=== PATIENT | male | born 1960 | race Caucasian/White ===

== ENCOUNTER 2021-01-17 19:05 | Emergency (ER) | payer MEDICARE ==
--- NOTE | 2021-01-17 19:37 | EDM.PDOC ---
ED HPI GENERAL MEDICAL PROBLEM - General Chief Complaint: Abdominal Pain Stated Complaint: COUGHING & POPPED SOMETHING LEFT SIDE Time Seen by Provider: 01/17/21 19:22 - History of Present Illness INITIAL COMMENTS - FREE TEXT/NARRATIVE: 60-year-old male presents the emergency room with left-sided chest wall pain. This started this afternoon after the patient coughed. The patient's been developing a little bit of URI symptoms and has been coughing a little bit. He coughed a little on the hard side developed some significant left lower rib pain. This is bad enough at times it really limits his ability to breathe and he certainly does not want to cough. He is not aware of any fevers or chills. His cough is nonproductive. The patient does not smoke. He used to have a problems with oxycodone however has been clean. He does not want opioids. Left Upper Abdominal Pain Score (Numeric/FACES): 8 - Related Data Allergies Allergy/AdvReac Type Severity Reaction Status Date / Time No Known Allergies Allergy Verified 01/17/21 19:14 Home Meds: Home Meds lisinopriL [Lisinopril] 40 mg PO DAILY 01/17/21 [History] metFORMIN [Glucophage] 500 mg PO BIDMEALS 01/17/21 [History] Past Medical History Cardiovascular History: Reports: Hypertension Endocrine/Metabolic History: Reports: Diabetes, Type II Social & Family History - Tobacco Use Tobacco Use Status *Q: Never Tobacco User - Recreational Drug Use Recreational Drug Use: No ED ROS GENERAL - Review of Systems Review Of Systems: See Below Constitutional: Reports: No Symptoms HEENT: Reports: Rhinitis. Denies: Ear Pain, Throat Pain Respiratory: Reports: Sputum (He has a cough and it is very uncomfortable to cough). Denies: Shortness of Breath, Wheezing Cardiovascular: Reports: Chest Pain (Chest wall pain) Endocrine: Reports: No Symptoms GI/Abdominal: Reports: No Symptoms : Reports: No Symptoms Musculoskeletal: Reports: No Symptoms Skin: Reports: No Symptoms Neurological: Reports: No Symptoms, Confusion, Dizziness ED EXAM, GENERAL - Physical Exam Exam: See Below Exam Limited By: No Limitations General Appearance: Alert, No Apparent Distress Head: Atraumatic, Normocephalic Neck: Normal Inspection, Supple, Non-Tender, Full Range of Motion. No: Lymphadenopathy (L), Lymphadenopathy (R) Respiratory/Chest: No Respiratory Distress, Lungs Clear, Normal Breath Sounds, Other (Palpable chest wall discomfort in the left lower chest lateral aspect moving anterior.) Back Exam: Normal Inspection. No: CVA Tenderness (L), CVA Tenderness (R), Vertebral Tenderness Extremities: Normal Inspection, No Pedal Edema #1 Interpretation EKG Date: 01/17/21 Rhythm: Other (Sinus tachycardia) Rate (Beats/Min): 111 [place]: Normal P-Wave: Present QRS: Normal ST-T: Other (Minimal nondiagnostic changes most likely related to rate) QT: Normal Comparison: NA - No Prior EKG Course - Vital Signs Last Recorded V/S: Last Vital Signs Temp 36.7 C 01/17/21 19:12 Pulse 96 01/17/21 19:12 Resp 17 01/17/21 19:12 BP 173/99 H 01/17/21 19:12 Pulse Ox 97 01/17/21 19:12 - Orders/Labs/Meds Orders: Active Orders 24 hr Category Date Time Status Sodium Chloride 0.9% [Normal Saline] 1,000 ml Med 01/17/21 19:45 Active IV ASDIRECTED Labs: Laboratory Tests 01/17/21 01/17/21 01/17/21 Range/Units 19:59 19:59 19:59 WBC 9.90 H (4.23-9.07) K/mm3 RBC 5.07 (4.63-6.08) M/mm3 Hgb 15.3 (13.7-17.5) gm/dl Hct 43.7 (40.1-51.0) % MCV 86.2 (79.0-92.2) fl MCH 30.2 (25.7-32.2) pg MCHC 35.0 (32.2-35.5) g/dl RDW Std Deviation 40.0 (35.1-43.9) fL Plt Count 165 (163-337) K/mm3 MPV 10.7 (9.4-12.3) fl Neut % (Auto) 80.0 H (34.0-67.9) % Lymph % (Auto) 11.4 L (21.8-53.1) % [place] % (Auto) 7.8 (5.3-12.2) % Eos % (Auto) 0.2 L (0.8-7.0) Baso % (Auto) 0.2 (0.1-1.2) % Neut # (Auto) 7.92 H (1.78-5.38) K/mm3 Lymph # (Auto) 1.13 L (1.32-3.57) K/mm3 [place] # (Auto) 0.77 (0.30-0.82) K/mm3 Eos # (Auto) 0.02 L (0.04-0.54) K/mm3 Baso # (Auto) 0.02 (0.01-0.08) K/mm3 D-Dimer, Quantitative 0.39 (0.19-0.50) mg/L Sodium 139 (136-145) mEq/L Potassium 4.2 (3.5-5.1) mEq/L Chloride 103 (98-107) mEq/L Carbon Dioxide 24 (21-32) mEq/L Anion Gap 16.2 H (5-15) BUN 11 (7-18) mg/dL Creatinine 0.7 (0.7-1.3) mg/dL Est Cr Clr Drug Dosing 112.98 mL/min Estimated GFR (MDRD) > 60 (>60) mL/min BUN/Creatinine Ratio 15.7 (14-18) Glucose 341 H (80-115) mg/dL Calcium 9.1 (8.5-10.1) mg/dL Total Bilirubin 0.6 (0.2-1.0) mg/dL AST 19 (15-37) U/L ALT 43 (16-63) U/L Alkaline Phosphatase 72 (46-116) U/L Troponin I < 0.017 (0.00-0.056) ng/mL Total Protein 7.4 (6.4-8.2) g/dl Albumin 3.2 L (3.4-5.0) g/dl Globulin 4.2 gm/dL Albumin/Globulin Ratio 0.8 L (1-2) Meds: Medications Discontinued Medications Generic Name Dose Route Start Last Admin Trade Name Freq PRN Reason Stop Dose Admin Sodium Chloride 1,000 mls @ 125 mls/hr 01/17/21 19:45 Normal Saline IV ASDIRECTED TOMASA Ketorolac Tromethamine 15 mg 01/17/21 19:40 Ketorolac 15 Mg/Ml Sdv IVPUSH 01/17/21 19:41 ONETIME ONE Ketorolac Tromethamine 30 mg 01/17/21 19:48 01/17/21 20:00 Ketorolac 30 Mg/Ml Sdv IM 01/17/21 19:49 30 mg ONETIME ONE Administration - Re-Assessments/Exams Free Text/Narrative Re-Assessment/Exam: 01/17/21 19:57 So far the patient's consenting to lab work EKG he definitely wants that shot but does not want an IV or fluids. 01/17/21 20:27 Patient left the department apparently he does not want to wait. His troponin and D-dimer is negative Departure - Departure Time of Disposition: 20:28 Disposition: Eloped 07 Clinical Impression: Acute chest wall pain - Discharge Information Referrals: Damion Patel MD [Primary Care Provider] - Forms: ED Department Discharge Sepsis Event Note (ED) - Evaluation Sepsis Screening Result: No Definite Risk - Focused Exam Vital Signs: Vital Signs Temp Pulse Resp BP Pulse Ox 01/17/21 19:12 36.7 C 96 17 173/99 H 97 - My Orders Last 24 Hours: My Active Orders 01/17/21 19:45 Sodium Chloride 0.9% [Normal Saline] 1,000 ml IV ASDIRECTED - Assessment/Plan Last 24 Hours: My Active Orders 01/17/21 19:45 Sodium Chloride 0.9% [Normal Saline] 1,000 ml IV ASDIRECTED
[2021-01-17] MEDS ORDERED: Ketorolac 15 MG/ML SDV IVPUSH ONE (19:40)
[2021-01-17] MEDS ORDERED: Sodium Chloride 0.9% 1,000 ML IV SCH (19:45)
[2021-01-17] MEDS ORDERED: Ketorolac 30 MG/ML SDV IM ONE (19:48)
--- NOTE | 2021-01-17 20:08 | CR ---
Chest: Portable view of the chest was obtained. Comparison: No prior chest imaging is available. Heart size and mediastinum are within normal limits for portable technique. Lungs are clear with no acute parenchymal change. No acute osseous abnormality is appreciated. Impression: 1. Nothing acute is seen on portable chest x-ray. Diagnostic code #1
== END 2021-01-17 20:28 | disposition left against medical advice (07) ==
LOC: JD.ED 19:05
DX: R07.89 Other chest pain (principal); I10 Essential (primary) hypertension; E11.9 Type 2 diabetes mellitus without complications; R00.0 Tachycardia, unspecified; Z79.84 Long term (current) use of oral hypoglycemic drugs; Z79.899 Other long term (current) drug therapy
CPT/HCPCS: 36415; 71045; 80053; 84484; 85025; 85379; 93005; 96372; 99285; J1885; 93010; 99283

== ENCOUNTER 2024-10-11 00:31 | Emergency (ER) | payer MEDICARE ==
[2024-10-11] MEDS ORDERED: Sodium Chloride 0.9% 10 ML Syringe FLUSH PRN (00:47)
[2024-10-11 01:09] LABS: BASOPHILS PERCENT AUTO 0.5 % (0.0-1.0); EOSINOPHILS ABSOLUTE AUTO 0.2 K/mm3 (0.0-0.4); EOSINOPHILS PERCENT AUTO 2.6 % (0.0-6.0); HEMOGLOBIN 13.4 gm/dl (14.0-18.0); IMMATURE GRAN ABSOLUTE AUTO 0.04 K/mm3 (0.00-0.05); IMMATURE GRAN PERCENT AUTO 0.5 % (0.0-0.4); LYMPHOCYTES ABSOLUTE AUTO 1.1 K/mm3 (1.0-4.8); LYMPHOCYTES PERCENT AUTO 12.9 % (24.0-44.0); MEAN CORPUSCULAR HEMOGLOBIN 29.7 pg (28.0-32.0); MEAN CORPUSCULAR HGB CONC 34.4 g/dl (32.0-36.0); MEAN CORPUSCULAR VOLUME 86.5 fl (83.0-99.0); MEAN PLATELET VOLUME 10.7 fl (9.4-12.4); MONOCYTES ABSOLUTE AUTO 0.8 K/mm3 (0.0-0.8); MONOCYTES PERCENT AUTO 9.4 % (0.0-8.0); NEUTROPHILS ABSOLUTE AUTO 6.2 K/mm3 (1.8-7.7); NEUTROPHILS PERCENT AUTO 74.1 % (41.0-71.0); PLATELET COUNT,PLT 194 K/mm3 (150-400); RED BLOOD CELL COUNT 4.51 M/mm3 (4.52-5.90); WHITE BLOOD CELL COUNT,WBC 8.39 K/mm3 (3.9-11.3)
[2024-10-11] MEDS: Bumetanide 1 MG/4 ML MDV IVPUSH ONE ×2 (01:24→03:10)
[2024-10-11 01:40] LABS: A/G RATIO 0.6 (1-2); ALBUMIN 2.6 g/dl (3.4-5.0); ANION GAP 10.6 (5-15); BUN/CREATININE RATIO 15.5 (14-18); CALCIUM 8.7 mg/dL (8.5-10.1); CREATININE 1.1 mg/dL (0.7-1.3); EST CRCL DRUG DOSING (CG) 69.13 mL/min; MAGNESIUM 1.8 mg/dL (1.8-2.4); POTASSIUM,K 3.6 mEq/L (3.5-5.1); PROTEIN TOTAL,TP 7.2 g/dl (6.4-8.2)
[2024-10-11 02:32] LABS: APPEARANCE,URINE CLEAR (Clear); BILIRUBIN,URINE NEGATIVE (Negative); COLOR,URINE YELLOW (Yellow); GLUCOSE,URINE TRACE (Negative); KETONES,URINE NEGATIVE (Negative); LEUKOCYTE ESTERASE,URINE NEGATIVE (Negative); NITRITE,URINE NEGATIVE (Negative); OCCULT BLOOD,URINE 1+ (Negative); PROTEIN,URINE 3+ (Negative); UROBILINOGEN,URINE 0.2 (0.2-1.0)
[2024-10-11 02:49] LABS: BACTERIA,URINE FEW /hpf (FEW); EPITHELIAL CELLS,URINE 0-5 /hpf (0-5); MUCUS,URINE FEW /hpf (FEW); WBC,URINE 0-5 /hpf (0-5)
[2024-10-11] MEDS ORDERED: Magnesium Sulfate (4.06 MEQ/ML) 5 GM/10 ML SDV IV ONE (03:01)
== END 2024-10-11 06:40 | disposition home or self-care (01) ==
LOC: JD.ED 00:31
DX: R60.0 Localized edema (principal); R79.0 Abnormal level of blood mineral; I10 Essential (primary) hypertension; E11.9 Type 2 diabetes mellitus without complications; Z79.82 Long term (current) use of aspirin; Z79.899 Other long term (current) drug therapy
CPT/HCPCS: 36415; 71045; 80053; 81001; 83735; 83880; 84484; 85025; 87428; 93005; 96365; 96375; 96376; 99285; J3475; J3490